=== PATIENT | male | born 1950 | race Caucasian/White ===

== ENCOUNTER 2023-04-25 08:24 | Outpatient (CLI) | payer MEDICARE ==
[2023-04-25 09:02] LABS: APPEARANCE,URINE CLEAR (CLEAR); BILIRUBIN,URINE NEGATIVE (NEGATIVE); BLOOD, URINE TRACE-INTA Ery/uL (NEGATIVE); COLOR,URINE YELLOW (YELLOW); KETONES,URINE NEGATIVE (NEGATIVE); LEUKOCYTE ESTERASE ,URINE NEGATIVE (NEGATIVE); NITRITE, URINE NEGATIVE (NEGATIVE); PROTEIN,URINE NEGATIVE (NEGATIVE); UGLUCOSE 3+ mg/dL (NEGATIVE); UROBILINOGEN,URINE 0.2 EU/dL (0.2)
[2023-04-25 09:10] LABS: ADD URINE CULTURE NO; BACTERIA,URINE Rare /HPF (None Seen); RBC,URINE 0-2 /HPF (0-2); SQUAMOUS EPITHELIAL CELL,UR Few /HPF (None Seen); WBC,URINE 0-2 /HPF (0-3)
[2023-04-25 09:12] LABS: BASOPHILS % (AUTO) 0.3 % (0.0-2.0); EOSINOPHILS % (AUTO) 0.7 % (0.0-6.0); HEMATOCRIT 44 % (39-51); HEMOGLOBIN 14.7 g/dL (13.5-17.5); LYMPHOCYTES # (AUTO) 0.9 K/uL (0.8-4.8); LYMPHOCYTES % (AUTO) 16.6 % (20.0-44.0); MEAN CORPUSCULAR HEMOGLOBIN 29 PG (26.0-33.0); MEAN CORPUSCULAR HGB CONC 33 g/dl (31.0-36.0); MEAN CORPUSCULAR VOLUME 89 fL (80-96); MONOCYTES # (AUTO) 0.5 K/uL (0.1-1.30); NEUTROPHILS # (AUTO) 3.8 K/uL (1.8-8.9); NEUTROPHILS % (AUTO) 72.4 % (43.0-81.0); PLATELET COUNT (AUTO) 191 K/uL (150-450); RED BLOOD CELL COUNT(AUTO) 4.99 MIL/uL (4.5-6.0); RED CELL DISTRIBUTION WIDTH 15.1 % (11.5-15.0); WHITE BLOOD COUNT (AUTO) 5.3 K/uL (4.3-11.0)
[2023-04-25 09:21] LABS: PARTIAL THROMBOPLASTIN TIME 29.1 SEC (24.3-34.3); PROTHROMBIN TIME 10.5 SECS (9.2-11.1)
[2023-04-25 09:25] LABS: CALCIUM, SERUM 9.5 mg/dL (8.5-10.1); CREATININE 0.9 mg/dL (0.6-1.3); POTASSIUM 4.2 mmol/L (3.5-5.1)
== END 2023-04-25 23:59 | disposition home or self-care (01) ==
LOC: RAD 08:24
PROVIDERS: ATTEND Internal Medicine Pulmonary Disease
DX: Z01.818 Encounter for other preprocedural examination (principal)
CPT/HCPCS: 36415; 71045-TC; 80048-TC; 81001; 85025-TC; 85730-TC

== ENCOUNTER 2023-05-02 09:31 | Inpatient (IN) | payer MEDICARE ==
[~2023-05-02] VITALS: Ht 172.7 cm; Wt 73.0 kg
[2023-05-02 09:30] VITALS: BP 131/62; TEMP 97.7; O2SAT 98
[2023-05-02 11:33] VITALS: BP 131/62; TEMP 97.7
[2023-05-02] MEDS ORDERED: LIDOCAINE 2%-EPI 1:100,000 30 ML VIAL ONE (11:46)
[2023-05-02] MEDS ORDERED: dexaMETHasone SOD PHOSPHATE 10 MG/ML VIAL ONE (11:47)
[2023-05-02] MEDS ORDERED: ROCURONIUM BROMIDE 50 MG/5 ML ONE (11:47)
[2023-05-02] MEDS ORDERED: VANCOMYCIN 1 GM VIAL ONE (11:47)
[2023-05-02] MEDS ORDERED: FENTANYL PF 100MCG/2ML AMPUL ONE (11:49)
[2023-05-02] MEDS ORDERED: POLYMYXIN B SULFATE 500,000 UNITS ONE (12:57)
[2023-05-02] MEDS ORDERED: IV NS 0.9% 1,000 ML IV PRN (14:30)
[2023-05-02] MEDS ORDERED: ONDANSETRON HCL/PF 4 MG/2 ML VIAL IV PRN (14:30)
[2023-05-02] MEDS ORDERED: ACETAMINOPHEN 325 MG TABLET PO PRN ×2 (14:30→19:30)
[2023-05-02] MEDS ORDERED: HYDROMORPHONE 1 MG/1 ML DISP.SYRIN IV PRN (14:30)
[2023-05-02] MEDS ORDERED: SITA1TAB2 PO (14:38)
[2023-05-02] MEDS ORDERED: OMEP40CA21 PO (14:38)
[2023-05-02] MEDS ORDERED: AMLO2.5T4 PO (14:38)
[2023-05-02] MEDS ORDERED: MELO-107 PO (14:38)
[2023-05-02] MEDS ORDERED: ASPI-1420 PO (14:38)
[2023-05-02] MEDS ORDERED: NEBI5TAB8 PO (14:38)
[2023-05-02] MEDS ORDERED: DAPA10TA PO (14:38)
[2023-05-02] MEDS ORDERED: ATOR10TA PO (14:38)
[2023-05-02] MEDS ORDERED: GABA-532 PO (14:38)
[2023-05-02] MEDS ORDERED: CARI3CAP PO (14:38)
[2023-05-02] MEDS ORDERED: Z GUARD REMEDY 4 OZ OINT TP PRN (19:30)
[2023-05-02] MEDS ORDERED: ZOLPIDEM TARTRATE 5 MG TABLET PO PRN (19:30)
[2023-05-02] MEDS ORDERED: MAG HYDROX/AL HYDROX/SIMETH 30 ML UDC PO PRN (19:30)
[2023-05-02] MEDS ORDERED: ONDANSETRON HCL/PF 4 MG/2 ML VIAL IVP PRN (19:30)
[2023-05-02] MEDS ORDERED: MAGNESIUM HYDROXIDE 30 ML UDC PO PRN (19:30)
[2023-05-02] MEDS ORDERED: DEXTROSE 50%-WATER 50 ML DISP.SYRIN IV PRN (19:30)
[2023-05-02] MEDS ORDERED: INSULIN REGULAR, HUMAN 100 UNIT/ML 3 ML VIAL SQ PRN (19:30)
[2023-05-02 20:00] VITALS: BP 132/67; TEMP 98.2; O2SAT 94
[2023-05-02] MEDS: METOPROLOL TARTRATE 25 MG TABLET PO SCH (20:24)
[2023-05-02] MEDS: BLOOD SUGAR DIAGNOSTIC 1 EACH STRIP VI SCH (21:29)
[2023-05-02] MEDS: *INSULIN REGULAR(HUMULIN R)HUM 100 UNIT/ML VIAL SQ PRN (21:31)
[2023-05-02] MEDS: VANCOMYCIN 1 GM in IV D5W 250ml IV SCH (22:08)
[2023-05-03 06:20] LABS: BASOPHILS % (AUTO) 0.1 % (0.0-2.0); HEMATOCRIT 40 % (39-51); HEMOGLOBIN 13.2 g/dL (13.5-17.5); LYMPHOCYTES # (AUTO) 0.8 K/uL (0.8-4.8); LYMPHOCYTES % (AUTO) 7.7 % (20.0-44.0); MEAN CORPUSCULAR HEMOGLOBIN 29 PG (26.0-33.0); MEAN CORPUSCULAR HGB CONC 33 g/dl (31.0-36.0); MEAN CORPUSCULAR VOLUME 88 fL (80-96); MONOCYTES # (AUTO) 0.7 K/uL (0.1-1.30); MONOCYTES % (AUTO) 6.8 % (2.0-12.0); NEUTROPHILS # (AUTO) 9.2 K/uL (1.8-8.9); NEUTROPHILS % (AUTO) 85.4 % (43.0-81.0); PLATELET COUNT (AUTO) 176 K/uL (150-450); RED BLOOD CELL COUNT(AUTO) 4.58 MIL/uL (4.5-6.0); RED CELL DISTRIBUTION WIDTH 14.9 % (11.5-15.0); WHITE BLOOD COUNT (AUTO) 10.8 K/uL (4.3-11.0)
[2023-05-03] MEDS: BLOOD SUGAR DIAGNOSTIC 1 EACH STRIP VI SCH ×2 (06:36→11:08)
[2023-05-03 06:39] LABS: CALCIUM, SERUM 9.2 mg/dL (8.5-10.1); CREATININE 0.9 mg/dL (0.6-1.3); MAGNESIUM 2.1 mg/dL (1.8-2.4); PHOSPHORUS 3.8 mg/dL (2.5-4.9); POTASSIUM 4.2 mmol/L (3.5-5.1)
[2023-05-03] MEDS: PANTOPRAZOLE 40 MG TABLET.DR PO SCH ×2 (07:17→07:30)
[2023-05-03 08:00] VITALS: BP 140/67; TEMP 98.4; O2SAT 94
[2023-05-03 08:37] VITALS: BP 140/67
[2023-05-03] MEDS: METOPROLOL TARTRATE 25 MG TABLET PO SCH (08:37)
[2023-05-03] MEDS ORDERED: GABAPENTIN 100 MG CAPSULE PO SCH (09:00)
[2023-05-03] MEDS ORDERED: AMLODIPINE BESYLATE 2.5 MG TABLET PO SCH (09:00)
[2023-05-03] MEDS ORDERED: DAPAGLIFLOZIN PROPANEDIOL 5 MG TABLET PO SCH (09:00)
[2023-05-03] MEDS: VANCOMYCIN 1 GM in IV D5W 250ml IV SCH (11:00)
[2023-05-03] MEDS: *INSULIN REGULAR(HUMULIN R)HUM 100 UNIT/ML VIAL SQ PRN (11:09)
== END 2023-05-03 13:00 | disposition home or self-care (01) | DRG 908 ==
LOC: DS 09:31 → MED 09:36
PROVIDERS: ADMIT Internal Medicine; ATTEND Internal Medicine
PROC: 0NBR0ZX Excision of Maxilla, Open Approach, Diagnostic (ICD-10-PCS; principal; 2023-05-02)
PROC: 0NUR07Z Supplement Maxilla with Autologous Tissue Substitute, Open Approach (ICD-10-PCS; 2023-05-02)
PROC: 09BR0ZZ Excision of Left Maxillary Sinus, Open Approach (ICD-10-PCS; 2023-05-02)
PROC: 09BQ0ZZ Excision of Right Maxillary Sinus, Open Approach (ICD-10-PCS; 2023-05-02)
PROC: 0NPW0JZ Removal of Synthetic Substitute from Facial Bone, Open Approach (ICD-10-PCS; 2023-05-02)
DX: T86.832 Bone graft infection (principal); M84.5 Pathological fracture in neoplastic disease; M27.2 Inflammatory conditions of jaws; T86.831 Bone graft failure; E11.40 Type 2 diabetes mellitus with diabetic neuropathy, unspecified; E11.9 Type 2 diabetes mellitus without complications; I10 Essential (primary) hypertension; K21.9 Gastro-esophageal reflux disease without esophagitis; Z79.899 Other long term (current) drug therapy; Z79.82 Long term (current) use of aspirin; Z79.84 Long term (current) use of oral hypoglycemic drugs; Y83.2 Surgical operation with anastomosis, bypass or graft as the cause of abnormal reaction of the patient, or of later complication, without mention of misadventure at the time of the procedure; Y92.009 Unspecified place in unspecified non-institutional (private) residence as the place of occurrence of the external cause; J01.90 Acute sinusitis, unspecified; D48.0 Neoplasm of uncertain behavior of bone and articular cartilage; E78.5 Hyperlipidemia, unspecified
CPT/HCPCS: 36415; 80048-TC; 82962-TC; 83735-TC; 84100-TC; 85025-TC; 87081-TC; 88305-TC; 88311-TC; 88312-TC; A4223; C1713; G0378; J0360; J0461; J0690; J1100; J1815; J1885; J2704; J3010; J3370; J3490; J7030; J7060

== ENCOUNTER 2023-10-24 05:14 | Inpatient (IN) | payer MEDICARE ==
[~2023-10-24 05:14] MED LIST: AMLO2.5T4 PO; ASPI-1420 PO; ATOR10TA PO; CARI3CAP PO; DAPA10TA PO; GABA-532 PO; MELO-107 PO; NEBI5TAB8 PO; OMEP40CA21 PO; SITA1TAB2 PO
[2023-10-24 06:00] VITALS: BP 135/73; TEMP 97.7; O2SAT 98
[2023-10-24] MEDS ORDERED: VANCOMYCIN 1 GM VIAL ONE ×2 (06:50→07:17)
[2023-10-24] MEDS ORDERED: ANESTHESIA TRAY IN PYXIS 1 EA TRAY MC ONE (06:50)
[2023-10-24] MEDS ORDERED: LIDOCAINE 2%-EPI 1:100,000 30 ML VIAL ONE ×2 (06:50→07:17)
[2023-10-24] MEDS ORDERED: dexaMETHasone SOD PHOSPHATE 1 ML ONE ×2 (06:50→07:17)
[2023-10-24] MEDS ORDERED: FENTANYL PF 250MCG/5ML AMPUL ONE (07:15)
[2023-10-24] MEDS ORDERED: ROCURONIUM BROMIDE 50 MG/5 ML ONE (07:15)
[2023-10-24 16:12] VITALS: BP 121/56; TEMP 98.8; O2SAT 96
[2023-10-24 20:00] VITALS: BP 123/57; TEMP 98.8; O2SAT 95
[2023-10-24] MEDS: VANCOMYCIN 1 GM in IV D5W 250 ML IV SCH (20:22)
[2023-10-24] MEDS ORDERED: IV NS 0.9% 1,000 ML BAG IV PRN (21:00)
[2023-10-24] MEDS: IV NS 0.9% 1,000 ML IV PRN (21:01)
[2023-10-25 08:00] VITALS: BP 116/60; TEMP 97.7; O2SAT 97
== END 2023-10-25 11:00 | disposition home or self-care (01) | DRG 908 ==
LOC: DS 05:14 → MED 05:18
PROVIDERS: ADMIT Student in an Organized Health Care Education/Training Program; ATTEND Student in an Organized Health Care Education/Training Program
PROC: 0NBT0ZX Excision of Right Mandible, Open Approach, Diagnostic (ICD-10-PCS; principal; 2023-10-24)
PROC: 0NSR0ZZ Reposition Maxilla, Open Approach (ICD-10-PCS; 2023-10-24)
PROC: 09BQ0ZZ Excision of Right Maxillary Sinus, Open Approach (ICD-10-PCS; 2023-10-24)
PROC: 09BR0ZZ Excision of Left Maxillary Sinus, Open Approach (ICD-10-PCS; 2023-10-24)
PROC: 0NUR07Z Supplement Maxilla with Autologous Tissue Substitute, Open Approach (ICD-10-PCS; 2023-10-24)
PROC: 0NBR0ZX Excision of Maxilla, Open Approach, Diagnostic (ICD-10-PCS; 2023-10-24)
PROC: 0NHT04Z Insertion of Internal Fixation Device into Right Mandible, Open Approach (ICD-10-PCS; 2023-10-24)
DX: T86.831 Bone graft failure (principal); S02.609K Fracture of mandible, unspecified, subsequent encounter for fracture with nonunion; I10 Essential (primary) hypertension; Y92.9 Unspecified place or not applicable; Y83.0 Surgical operation with transplant of whole organ as the cause of abnormal reaction of the patient, or of later complication, without mention of misadventure at the time of the procedure; E78.5 Hyperlipidemia, unspecified; E11.9 Type 2 diabetes mellitus without complications; Z79.84 Long term (current) use of oral hypoglycemic drugs; Z79.82 Long term (current) use of aspirin; Z79.899 Other long term (current) drug therapy; X58.XXXD Exposure to other specified factors, subsequent encounter; J32.9 Chronic sinusitis, unspecified; M27.8 Other specified diseases of jaws
CPT/HCPCS: 82962-TC; 87081-TC; A4223; C1713; G0378; J0690; J1100; J2704; J3010; J3370; J3490; J7030; J7060